=== PATIENT | female | born 1945 | race Caucasian/White ===

== ENCOUNTER → 2016-06-14 | Outpatient (CLI) | payer MEDICARE, BC ==
--- NOTE | 2016-06-15 06:43 | HKNOTE ---
DATE OF SERVICE: 06/14/2016 The patient complains of pain in her right hip. She had a right total hip replacement performed by me in 1988. She has been over to my office to get cortisone injections into trochanteric bursitis o f the right hip. She comes in requesting another injection. PRESENT COMPLAINTS: The pain of her right leg is localized to the greater trochanter and is aggrava rufino by walking and weightbearing. Pain has been ____ the past few years. She sometimes gets pain a t rest. Sometimes she gets pain if she rolls over onto her right side. She has been trying to take [id number] NSAIDs ____ work for her. She has also tried a Lidoder m patch which did not help very much. She has severe scoliosis of her lumbar spine. The doctor rec ommended ____ some time but not now, but she has declined to do that. On a level surface, she can walk about a half a mile using a walker. She does not limp. ____ The r ight leg feels a little shorter than the left leg. PAST ORTHOPEDIC HISTORY: The patient had a hip replacement performed by Dr. Rayo in 1988. PRIOR CORTISONE INTAKE: None that I can recall. She has no other joint problems. ALCOHOL INTAKE: None. Currently takes 1 glass of wine a week. ____ BLOOD TESTS FOR ARTHRITIS: Yes I have had the tests, and they show I have osteoporosis. PRIOR INJURIES TO HIPS AND KNEES: Only as above. WORK STATUS: The patient is semi-retired. PAST MEDICAL HISTORY: Negative. PAST SURGICAL HISTORY: Hip replacement by Dr. Rayo. MAJOR ACCIDENTS CAUSING INJURY OR PROBLEMS: None reported. DRUG ALLERGIES: SULFA. MEDICATIONS: 1. Memantine 10 mg by mouth a day. 2. Progesterone 100 mg by mouth once a day. 3. Diclofenac ____ mg twice a day by mouth for arthritis. 4. ____ pills 3 times a day by mouth. 5. ____ 50 mg twice day by mouth ____. 6. Cevimeline 30 mg 3 times a day by mouth. 7. ____ 50 two tablets twice a day ____. 8. Hydroxyzine ____ mg twice a day for itching. 9. ____ 60 mg once a day by mouth for depression. 10. Imipramine ____ 40 mg a day. 11. Levothyroxine 88 mcg a day by mouth. PHYSICAL EXAMINATION: GENERAL: Overall a fit-looking 70-year-old female. VITAL SIGNS: Height 5 feet. Weight 150 pounds. Blood pressure 136/75, temperature 98.4. GAIT: The patient has a slight antalgic gait. RIGHT HIP: A full range of motion without pain. Marked tenderness over the greater trochanter. NEUROLOGIC: Motor examination reveals no muscle deficit in the lower extremities. Deep tendon refl exes in the lower extremities: Right knee jerk +, left knee jerk +, right ankle jerk +, left ankle jerk +. Straight leg raising is negative bilaterally at 80 degrees. Lasegue and WINNIE tests are ne gative. IMAGING: Plain x-rays of her pelvis and hips obtained today show ____ the patient had right hip rep lacement. All components are well attached to the bone and well aligned. The socket has slightly w orn out. (I do not recommend taking it out at this time). The patient seems to be doing well ____. DISCUSSION: The patient has trochanteric bursitis of the right hip. She has a worn socket superior ly in keeping with the length of time that she has had this hip replacement in place. The patient does not have any symptoms ____ to her hip (i.e., groin pain). She does clearly have a present problem of greater trochanteric bursitis. MANAGEMENT: Under sterile conditions, given injection of 2 mL of Kenalog and 6 mL of 2% lidocaine i nto the trochanteric bursa, and she will be seen again as necessary for further evaluation and treat ment. Dictated By: NAA RODRÍGUEZ/CLARENCE Conf#: [id number] DID#: [id number]
--- NOTE | 2016-06-15 09:08 | RADRPT ---
PROCEDURE: XR pelvis/right hip. CLINICAL INDICATION: Hip pain TECHNIQUE: AP pelvis/lateral right hip view performed. COMPARISON: 07/03/2013 FINDINGS: There is a right total hip replacement. There is no evidence of loosening of the prosthesis. No hard cash failure is identified. There is moderate to severe left hip osteoarthrosis. This is associated with joint space narrowing, subchondral sclerosis, subchondral cyst formation and osteophytosis. There is normal osseous minera lization. No fractures or osseous lesions are identified. The soft tissues are unremarkable. IMPRESSION: Right total hip replacement. Moderate to severe left hip osteoarthrosis. RPTAT: HGDB .Christopher Colon MD, MD Date Time Electronically viewed and signed by .Christopher Colon MD, on 06/15/2016 09:08 .B/
== END | disposition home or self-care (01) ==
LOC: HKI 13:36
DX: M25.561 Pain in right knee (principal); M70.61 Trochanteric bursitis, right hip
CPT/HCPCS: 20610; 73502; G0463

== ENCOUNTER → 2016-08-16 | Outpatient (CLI) | END | disposition home or self-care (01) | DX: M16.12 Unilateral primary osteoarthritis, left hip (principal); M70.62 Trochanteric bursitis, left hip | CPT/HCPCS: 20610; G0463 ==

== ENCOUNTER → 2018-05-22 | Outpatient (CLI) | payer MEDICARE, BC ==
--- NOTE | 2018-05-22 15:56 | CONS ---
Assessment/Plan Assessment/Plan Hospital Course (Demo Recall) This is a 72-year-old female who presents with lower back and left posterior pelvic pain as well as left greater trochanteric bursitis. She does have significant osteoarthritis of her left hip, however, he does not appear to be clinically symptomatic as she has near full range of motion only has pain at the ends of range of motion and she denies any groin pain. Her right total hip arthroplasty was done around [address] Rayo and it is showing signs of eccentric wear. At this time there are no significant signs of ostial lysis or loosening of the implants. In regards to the left hip I am recommending a GT bursa injection today. In regards to her right hip I would like to closely monitor that total hip arthroplasty for where and ostial lysis in the future. I like to see her back in 6 months for new x-rays. In regards to her lower back and pelvic pain I am recommending that she see a spine doctor given her severe scoliosis. Assessment/Plan (Daily) Left GT brusa steroid injection procedure: Risks and benefits of steroid injection reviewed with patient. The risks include infection, failure, pain, swelling, nerve/tendon/ligament damage. The patient verbalized understanding and verbal consent was obtained prior to procedure. The left GT bursa was prepped in a sterile fashion with alcohol and betadine the site of injection was confirmed. Lateral approach was used. The skin and subcutaneous tissue was anesthetized with 3mL 1% lidocaine. The left GT bursa was injected with 4mL 1% lidocaine, 4mL 0.25% bupivacaine, 40mg Depo-Medrol. Injection flowed freely. Good hemostasis was achieved and no complications noted. The patient tolerated the procedure well. Limit activity and ice for 24- 48 hours Consultation Date/Type/Reason Admit Date/Time Date of Consultation: May 22, 2018 Reason for Consultation Left hip pain Date/Time of Note DATE: 05/22/18 TIME: 15:38 Hx of Present Illness This is a 72-year-old female with past medical history of severe scoliosis who presents with a history of left hip pain. Patient states the pain is in the posterior pelvis and lower back. Denies any groin pain. Complains of muscle spasms. The pain is primarily when standing for long period of time. It is described as a spasms. The pain is rated as a 8/10 with activity. Walking tolerance is 1 mile. Uses a walker for external support at all times. The patient admit to a limp. Navigates stairs with use of the banister. Has no difficulty with shoes and socks. No history of childhood or adolescent hip disease. No risk factors for avascular necrosis. There are symptoms to suggest referred pain from the back with radicular symptoms. Patient has chronic decreased sensation to bilateral lower extremities. Treatment to date has included activity modification, support devices. The patient states that treatment to date has not provided adequate relief of symptoms, prompting consultation regarding operative and nonoperative treatment for left hip pain. Of note she is status post right total hip arthroplasty by Dr. Rayo done around 1994. Denies any significant pain. States that she has occasional groin pain that is very intermittent. Duration: Years Injury: No Walking tolerance: 1 mile Limp: Yes Support: Walker Stairs: With difficulty Physical Therapy: No Injections: No previous injection to the left hip NSAID's: Contraindicated secondary to myocardial infarction Prior surgery: No Back pain: Yes Knee pain: No Risk of AVN : No Patient denies fever, chills, shortness of breath, chest pain, nausea/vomiting, constipation, diarrhea Past Medical History Scoliosis Hypertension Myocardial infarctionDecember 2018 Hypothyroidism Osteoarthritis Osteoporosis Past Surgical History Right total hip arthroplasty [address] Ray[address] Family History Significant Family History: no pertinent family hx Social History Alcohol Use: occasionally (1 drink a week) Smoking Status: Former smoker Drug Use: none Exam/Review of Systems Exam Vitals Weight: 148 pounds Height: 5 foot Heart Rate: 70 Blood Pressure: 144/63 Exam General: Awake, alert, in no acute distress, pleasant and cooperative Heart: regular rhythm Lungs: breathing comfortably, no tachypnea or dyspnea Musculoskeletal: Well developed female in no apparent distress. Gait demonstrates a Trendelenburg with antalgic components and short leg component. Obvious scoliosis. Standing, the pelvis is oblique as well as the shoulders and supine there is true leg length discrepancy, with the left leg 0.5 cm short. There is tenderness over trochanteric bursa or IT band. ----- Range of motion bilateral hips: Flexion: 120 Extension: 0 Internal rotation: 30 External rotation: 30 Abduction: 45 Adduction: 0 ----- Sitting there is fixed pelvic obliquity. Pain at the extremes of motion of the affected hip. Skin was intact throughout both lower extremities. Sensation intact to light touch in a sural, saphenous, deep peroneal, superficial peroneal, medial and lateral plantar nerve distribution. Neurovascular exam showed 5/5 strength in the abductors, quads, EHL/tibialis anterior/gastroc. Normal and symmetrical pulses were palpated in both the dorsalis pedis and posterior tibial arteries. There is no sign of venous stasis. Imaging Imaging The patient received a full set of films and personally reviewed by myself today in clinic including an AP pelvis and an AP and lateral of the affected hip. LEFT The hip is reduced. There is significant loss of joint space. There is osteophyte formation. There is subchondral sclerosis. There are subchondral cysts. There is no significant deformity of the the proximal femur, femoral neck, or acetabulum. The pelvis is in continuity. Bone quality radiographically: Fair Lumbar spine partially visualized with severe degenerative changes and scoliosis. RIGHT Xrays obtained in clinic today and personally reviewed by myself: AP pelvis and AP/Lat of the right hip demonstrate hip s/p EMERSON with hip reduced. Components in good position and alignment. There is significant eccentric wear of the polyethylene liner that has worsened since the last x-ray 2 years ago. No signs of osteolysis, loosening, component failure, or fracture. No acute complications. MEG MONTANO MD May 22, 2018 15:53
--- NOTE | 2018-05-24 14:38 | RADRPT ---
PROCEDURE: XR Pelvis and Bilateral Hips CLINICAL INDICATION: Hip pain. TECHNIQUE: Three views of the pelvis and bilateral hips were obtained. COMPARISON: 06/14/2016 FINDINGS: There is no acute fracture or dislocation. There are stable postsurgical changes of total right hip a rthroplasty. Hardware appears intact. There are moderate to severe osteoarthritic changes of the left hip joint, not significantly changed. Bones appear osteopenic. Severe degenerative changes of the mayr mbar spine with left-sided scoliotic deformity is partially seen. Unchanged chronic deformity of the left inferior pubic ramus. IMPRESSION: 1. Stable postsurgical changes of right total hip arthroplasty without evidence of complication. 2. Moderate to severe left hip joint osteoarthritis, not significantly changed. 3. Severe lumbar spondylosis and levoscoliosis, partially imaged. 4. Osteopenia. RPTAT: DD Physician Marco Date Time Electronically viewed and signed by Physician Marco on 05/24/2018 14:37 PAWEL/
== END | disposition home or self-care (01) ==
LOC: HKI 13:59
PROVIDERS: ATTEND Orthopaedic Surgery Adult Reconstructive Orthopaedic Surgery
DX: M54.5 Low back pain (principal); R10.2 Pelvic and perineal pain; M70.62 Trochanteric bursitis, left hip; M41.9 Scoliosis, unspecified; M25.552 Pain in left hip; Z96.641 Presence of right artificial hip joint; Z87.891 Personal history of nicotine dependence
CPT/HCPCS: 20610; 73523; G0463